=== PATIENT | female | born 1955 | race Caucasian/White ===

== ENCOUNTER 2018-07-11 16:24 | Outpatient (REF) | payer BC, SELFPAY | END 2018-07-11 16:44 | LOC: NCHCN 16:24 | PROVIDERS: PCP Internal Medicine; Visit Provider Family Medicine | DX: R39.9 Unspecified symptoms and signs involving the genitourinary system (principal) | CPT/HCPCS: 87077; 87086; 87186 ==

== ENCOUNTER 2018-08-06 12:46 | Outpatient (REF) | payer BC, SELFPAY ==
[2018-08-06 21:38] LABS: Abs Immature Grans 0.02 k/cumm (0.0-0.09); Absolute Basophil Count 0.02 k/cumm (0.0-0.2); Absolute Eosinophil Count 0.36 k/cumm (0.0-0.7); Absolute Lymphocyte Count 2.61 k/cumm (1.2-3.4); Absolute Monocyte Count 1.09 k/cumm (0.11-0.7); Absolute Neutrophil Count 4.74 k/cumm (1.2-6.7); Basophils % 0.2; Eosinophils % 4.1; HCT 44.6 % (36.0-46.0); HGB 14.8 g/dL (12.0-15.5); Immature Grans % 0.2; Lymphocytes % 29.5; Mean Corp. HGB Concentration 33.2 g/dL (32.0-36.0); Mean Corpuscular Hemoglobin 29.2 pg (27.0-33.0); Mean Corpuscular Volume 88.1 fL (80-95); Mean Platelet Volume 11.3 fL (8.0-11.0); Monocytes % 12.3; Neutrophils % 53.7; Platelet Count 337 x1000/uL (130-400); RBC 5.06 m/cumm (4.00-5.20); RBC Distribution Width 13.4 % (11.7-14.6); White Blood Cell Count 8.84 k/cumm (4.4-10.8)
[2018-08-06 21:44] LABS: Anion Gap 10.9 mmol/L (3-11); BUN 20 mg/dL (7-18); CO2 25.1 mmol/L (21.0-32.0); CREATININE 0.75 mg/dL (0.55-1.02); Calcium 9.2 mg/dL (8.5-10.1); Chloride 103 mmol/L (98-107); Glucose 93 mg/dL (70-100); Potassium 4.4 mmol/L (3.5-5.1); Sodium 139 mmol/L (136-145)
[2018-08-08 10:54] LABS: HIV-1/2 Ag & Ab Screen Negative (NEGAT)
== END 2018-08-06 13:06 ==
LOC: NCHCN 12:46
PROVIDERS: PCP Internal Medicine; Visit Provider Nurse Practitioner Family
DX: R39.9 Unspecified symptoms and signs involving the genitourinary system (principal); E66.9 Obesity, unspecified; Z13.1 Encounter for screening for diabetes mellitus
CPT/HCPCS: 80048; 87389; 83036; 85025; 87086

== ENCOUNTER 2020-03-12 13:12 | Outpatient (REF) | payer MEDICARE, BC, SELFPAY ==
[2020-03-12 16:27] LABS: Calculated LDL 163 mg/dL (<100); Cholesterol 259 mg/dL (<200); HDL Cholesterol 51 mg/dL (40-60); Triglyceride 227 mg/dL (<150)
[2020-03-12 16:38] LABS: Hemoglobin A1C 5.6 % (<5.7)
== END 2020-03-12 13:32 ==
LOC: NCHCN 13:12
PROVIDERS: PCP Internal Medicine; Visit Provider Nurse Practitioner Family
DX: R73.03 Prediabetes (principal); E66.9 Obesity, unspecified; Z00.00 Encounter for general adult medical examination without abnormal findings
CPT/HCPCS: 80061; 83036

== ENCOUNTER 2022-01-18 15:20 | Outpatient (REF) | payer MEDICARE, SELFPAY ==
[2022-01-18 20:36] LABS: Abs Immature Grans 0.02 10^3/uL (0.0-0.06); Absolute Basophil Count 0.06 10^3/uL (0.0-0.2); Absolute Eosinophil Count 0.46 10^3/uL (0.0-0.7); Absolute Lymphocyte Count 2.77 10^3/uL (1.2-3.4); Absolute Monocyte Count 1.16 10^3/uL (0.1-0.8); Absolute Neutrophil Count 5.39 10^3/uL (1.2-6.7); Basophils % 0.6; Eosinophils % 4.7; HCT 45.1 % (36.0-46.0); HGB 14.9 g/dL (11.2-15.7); Immature Grans % 0.2; Lymphocytes % 28.1; MCH 28.7 pg (27.0-33.0); MCV 87 fL (80-95); MPV 10.8 fL (8.0-11.0); Monocytes % 11.8; Neutrophils % 54.6; Platelet Count 363 10^3/uL (130-400); RBC 5.19 10^6/uL (3.93-5.22); RDW 12.8 % (11.7-14.6); RDW-SD 39.9 fL; WBC 9.86 10^3/uL (4.4-10.8)
[2022-01-18 21:02] LABS: Calculated LDL 155 mg/dL (<100); Cholesterol 244 mg/dL (<200); HDL Cholesterol 50 mg/dL (40-60); TSH 3.58 uIU/mL (0.36-3.74); Triglyceride 199 mg/dL (<150)
[2022-01-18 21:27] LABS: Hemoglobin A1C 5.8 % (<5.7)
== END 2022-01-18 15:21 | disposition home or self-care (01) ==
LOC: NCHCN 15:20
PROVIDERS: PCP Internal Medicine; Visit Provider Nurse Practitioner Family
DX: E78.5 Hyperlipidemia, unspecified (principal); R73.03 Prediabetes; Z13.0 Encounter for screening for diseases of the blood and blood-forming organs and certain disorders involving the immune mechanism; Z13.29 Encounter for screening for other suspected endocrine disorder
CPT/HCPCS: 80061; 83036; 84443; 85025

== ENCOUNTER → 2023-05-18 04:34 | Outpatient (CLI) | payer MEDICARE, SELFPAY ==
--- NOTE | 2023-05-18 | DI.DEXA_ITS ---
Exam(s) XR DEXA BONE DENSITY W/WO [facility] EXAM: XR DEXA BONE DENSITY W/WO [facility] CLINICAL HISTORY: SCREENING FOR OSTEOPOROSIS, Z78.0, ASYMPATOMATIC MENOPAUSAL STATE TECHNIQUE: COMPARISON: No exams were available for comparison FINDINGS: Lateral Spine Image: Unremarkable. No compression deformities identified. Left hip: Total T-Score: -0.5 Total Z-Score: 0.9 T- and Z-scores: Within normal limits. Lumbar Spine: Total T-Score: -1.4 Total Z-Score: 0.6 T- and Z-scores: Findings are consistent with osteopenia. There is osteoporosis in the left forearm with a total T-score of -2.7 and a Z-score of -0.8. IMPRESSION: Osteoporosis in the left forearm. No evidence of osteoporosis in the left hip or lumbar spine.
== END ==
PROVIDERS: PCP Internal Medicine; Visit Provider Nurse Practitioner Family
DX: Z78.0 Asymptomatic menopausal state (principal); Z13.820 Encounter for screening for osteoporosis
CPT/HCPCS: 77080

== ENCOUNTER 2023-05-30 17:55 | Outpatient (REF) | payer MEDICARE, SELFPAY ==
[2023-05-30 14:28] LABS: HCT 45.2 % (36.0-46.0); HGB 15.3 g/dL (11.2-15.7); MCH 29.2 pg (27.0-33.0); MCHC 33.8 % (32.0-36.0); MCV 86 fL (80-95); MPV 10.5 fL (8.0-11.0); Platelet Count 337 10^3/uL (130-400); RBC 5.24 10^6/uL (3.93-5.22); RDW 12.3 % (11.7-14.6); WBC 11.21 10^3/uL (4.4-10.8)
[2023-05-30 15:09] LABS: Hemoglobin A1C 5.8 % (<5.7)
[2023-05-30 15:25] LABS: ALT 22 U/L (14-59); AST 16 U/L (15-37); Alkaline Phosphatase 68 U/L (46-116); Anion Gap 9.6 mmol/L (3-11); BUN 19 mg/dL (7-18); Bilirubin, Total 0.4 mg/dL (0.2-1.0); CO2 27.4 mmol/L (21.0-32.0); Calcium 9.9 mg/dL (8.5-10.1); Calculated LDL 156 mg/dL (<100); Chloride 103 mmol/L (98-107); Cholesterol 228 mg/dL (<200); Estimated GFR 61.36 (mL/min/1.73m2); Glucose 129 mg/dL (74-106); HDL Cholesterol 52 mg/dL (40-60); Potassium 4.2 mmol/L (3.5-5.1); Sodium 140 mmol/L (136-145); Total Protein 7.7 g/dL (6.4-8.2); Triglyceride 104 mg/dL (<150)
[2023-05-30 15:37] LABS: Vitamin D 25 Total 26.9 ng/mL (30-100)
== END 2023-05-30 17:56 | disposition home or self-care (01) ==
LOC: NCHCN 17:55
PROVIDERS: PCP Nurse Practitioner Family; Visit Provider Nurse Practitioner Family
DX: E78.5 Hyperlipidemia, unspecified (principal); R73.03 Prediabetes; M81.0 Age-related osteoporosis without current pathological fracture; Z13.0 Encounter for screening for diseases of the blood and blood-forming organs and certain disorders involving the immune mechanism
CPT/HCPCS: 80053; 80061; 82306; 85027; 83036

== ENCOUNTER 2024-05-07 13:59 | Outpatient (REF) | payer MEDICARE, SELFPAY ==
[2024-05-07 15:01] LABS: HCT 48.3 % (36.0-46.0); MCH 29.3 pg (27.0-33.0); MCHC 33.1 % (32.0-36.0); MCV 89 fL (80-95); MPV 10.6 fL (8.0-11.0); Platelet Count 325 10^3/uL (130-400); RBC 5.46 10^6/uL (3.93-5.22); RDW 12.8 % (11.7-14.6); RDW-SD 41.3 fL; WBC 9.41 10^3/uL (4.4-10.8)
[2024-05-07 15:56] LABS: Hemoglobin A1C 5.9 % (<5.7)
[2024-05-07 16:05] LABS: Anion Gap 10.4 mmol/L (3-11); BUN 19 mg/dL (7-18); CO2 23.6 mmol/L (21.0-32.0); CREATININE 0.9 mg/dL (0.55-1.02); Calcium 9.9 mg/dL (8.5-10.1); Calculated LDL 135 mg/dL (<100); Chloride 109 mmol/L (98-107); Cholesterol 219 mg/dL (<200); Glucose 102 mg/dL (74-106); HDL Cholesterol 54 mg/dL (40-60); Potassium 4.8 mmol/L (3.5-5.1); Sodium 143 mmol/L (136-145); TSH 3.67 uIU/mL (0.36-3.74); Triglyceride 154 mg/dL (<150); Vitamin D 25 Total 38.1 ng/mL (30-100)
== END 2024-05-07 14:00 | disposition home or self-care (01) ==
LOC: NCHCN 13:59
PROVIDERS: PCP Nurse Practitioner Family; Visit Provider Nurse Practitioner Family
DX: M81.0 Age-related osteoporosis without current pathological fracture (principal); R73.03 Prediabetes; E78.5 Hyperlipidemia, unspecified; Z13.0 Encounter for screening for diseases of the blood and blood-forming organs and certain disorders involving the immune mechanism
CPT/HCPCS: 80048; 80061; 82306; 85027; 83036; 84443

== ENCOUNTER 2024-05-17 08:12 | Outpatient (REF) | payer MEDICARE, SELFPAY ==
[2024-05-17 15:05] LABS: Abs Immature Grans 0.03 10^3/uL (0.0-0.06); Absolute Basophil Count 0.07 10^3/uL (0.0-0.2); Absolute Eosinophil Count 0.41 10^3/uL (0.0-0.7); Absolute Lymphocyte Count 2.82 10^3/uL (1.2-3.4); Absolute Monocyte Count 1.13 10^3/uL (0.1-0.8); Absolute Neutrophil Count 5.34 10^3/uL (1.2-6.7); Basophils % 0.7 %; Eosinophils % 4.2 %; HCT 46.8 % (36.0-46.0); HGB 15.7 g/dL (11.2-15.7); Immature Grans % 0.3 %; Lymphocytes % 28.8 %; MCH 29.2 pg (27.0-33.0); MCHC 33.5 % (32.0-36.0); MCV 87 fL (80-95); MPV 10.8 fL (8.0-11.0); Monocytes % 11.5 %; Neutrophils % 54.5 %; Platelet Count 360 10^3/uL (130-400); RBC 5.37 10^6/uL (3.93-5.22); RDW 12.7 % (11.7-14.6); RDW-SD 40.8 fL
[2024-05-17 15:18] LABS: ALT 33 U/L (14-59); AST 22 U/L (15-37); Albumin 3.9 g/dL (3.4-5.0); Alkaline Phosphatase 49 U/L (46-116); Bilirubin, Direct 0.1 mg/dL (0.0-0.2); Bilirubin, Total 0.42 mg/dL (0.2-1.0); Total Protein 7.4 g/dL (6.4-8.2)
== END 2024-05-17 08:13 | disposition home or self-care (01) ==
LOC: NCHCN 08:12
PROVIDERS: PCP Nurse Practitioner Family; Visit Provider Nurse Practitioner Family
DX: D75.1 Secondary polycythemia (principal)
CPT/HCPCS: 80076; 85025

== ENCOUNTER 2025-01-22 17:44 | Outpatient (REF) | payer MEDICARE, SELFPAY | END 2025-01-22 17:45 | disposition home or self-care (01) | LOC: NCHCN 17:44 | PROVIDERS: PCP Nurse Practitioner Family; Visit Provider Physician Assistant | DX: R30.0 Dysuria (principal) | CPT/HCPCS: 87086 ==